=== PATIENT | male | born 1955 | race Caucasian/White ===

== ENCOUNTER 2022-05-21 14:11 | Emergency (ER) | payer MEDICARE, OTHER ==
[2022-05-21 16:05] VITALS: RESP 20; TEMP 98.2
[2022-05-21] MEDS ORDERED: SODIUM CHLORIDE 0.9% 1,000 ML IV STA (16:46)
[2022-05-21 17:11] VITALS: BP 175/95; PULSE 103
[2022-05-21 17:17] LABS: Basophils # (A) 0.1 k/uL (0-0.2); Basophils % (A) 1 %; Eosinophils # (A) 0.1 k/uL (0-0.7); Eosinophils % (A) 1 %; HCT 32.5 % (39.0-53.0); HGB 10.7 gm/dL (13.0-17.5); Hypochromasia Slight; Lymphocytes # (A) 1.3 k/uL (1.0-4.8); Lymphocytes % (A) 12 %; MCH 34.6 pg (25.0-35.0); MCHC 32.9 g/dL (31.0-37.0); MCV 105.1 fL (80.0-100.0); Macrocytosis Moderate; Mean Platelet Volume 8.2; Monocytes # (A) 0.6 k/uL (0-1.0); Monocytes % (A) 6 %; Neutrophils # (A) 8.3 k/uL (1.3-7.7); Neutrophils % (A) 78 %; Platelet Count 299 k/uL (150-450); RBC 3.09 m/uL (4.30-5.90); RDW 15.6 % (11.5-15.5); WBC 10.6 k/uL (3.8-10.6)
[2022-05-21 17:29] LABS: Appearance,Urine Clear (Clear); Bilirubin,Urine 2+ (Negative); Blood,Urine Negative (Negative); Color,Urine Dark Yellow; Glucose,Urine (UA) Negative (Negative); Hyaline Casts,Urine 1 /lpf (0-2); Ketones,Urine 4+ (Negative); Leukocyte Esterase,Urine Negative (Negative); Mucus,Urine Many /hpf; Nitrite,Urine Negative (Negative); Protein,Urine 1+ (Negative); RBC,Urine <1 /hpf (0-5); Specific Gravity,Urine 1.025 (1.001-1.035); Squamous Epithelial Cell,Urine <1 /hpf (0-4); Urobilinogen,Urine >12.0 mg/dL (<2.0); WBC,Urine 4 /hpf (0-5)
[2022-05-21 17:39] LABS: ALT 77 U/L (4-49); African American GFR (CKD) >90 (>60 ml/min/1.73 sqM); Albumin 3.9 g/dL (3.5-5.0); Anion Gap 18 mmol/L; Blood Urea Nitrogen 11 mg/dL (9-20); Calcium 8.7 mg/dL (8.4-10.2); Carbon Dioxide 19 mmol/L (22-30); Chloride 94 mmol/L (98-107); Glucose 90 mg/dL (74-99); Non-African American GFR(CKD) >90 (>60 ml/min/1.73 sqM); Sodium 131 mmol/L (137-145); Total Bilirubin 1.9 mg/dL (0.2-1.3); Total Protein 7.7 g/dL (6.3-8.2)
[2022-05-21 17:51] LABS: AST 200 U/L (17-59); Alkaline Phosphatase 294 U/L (38-126); Potassium 4.7 mmol/L (3.5-5.1)
--- NOTE | 2022-05-21 18:33 | XR ---
EXAMINATION TYPE: XR chest 2V DATE OF EXAM: 05/21/2022 5:43 PM COMPARISON: none TECHNIQUE: XR chest 2V Frontal and lateral views of the chest. CLINICAL INDICATION:Male, 67 years old with history of tachycardia, pitting edema; FINDINGS: Lungs/Pleura: There is no evidence of pleural effusion, focal consolidation, or pneumothorax. Pulmonary vascularity: Unremarkable. Heart/mediastinum: Cardiomediastinal silhouette is unremarkable. Musculoskeletal: No acute osseous pathology. IMPRESSION: No acute cardiopulmonary disease/process.
--- NOTE | 2022-05-21 18:43 | ED ---
ENT HPI - General Chief complaint: Dental/Oral Stated complaint: Thrush and can't eat Time Seen by Provider: 05/21/22 16:19 Source: patient Mode of arrival: ambulatory Limitations: no limitations - History of Present Illness Initial comments: Patient is a 67-year-old male who presents to the emergency department for evaluation of thrush-like symptoms. Patient presents with his family who help provide history. Patient states he has had a white tongue for the past 2 weeks which has made food taste and smell foul. Patient denies any tongue pain. His family has concern that patient has been more fatigued for the past 2 weeks with lower leg swelling. Denies history of high blood pressure, diabetes, coronary artery disease, hyperlipidemia, congestive heart failure, and cancer. Denies corticosteroid use. Patient admits he has not been at the doctor in several years. He states he drinks a pint to a pint and a half daily and smokes a pack and half of cigarettes daily as well. He denies fever, chills, shortness of breath, upper respiratory symptoms, chest pain, abdominal pain, nausea, vomiting, and burning with urination. - Related Data Previous Rx's Medication Instructions Recorded Nystatin 100,000 Unit/ml Susp 5 ml PO QID 7 Days #140 ml 05/21/22 [Mycostatin Oral Susp] Allergies Allergy/AdvReac Type Severity Reaction Status Date / Time Penicillins AdvReac Dyspnea Verified 05/21/22 18:12 Review of Systems ROS Statement: Those systems with pertinent positive or pertinent negative responses have been documented in the HPI. ROS Other: All systems not noted in ROS Statement are negative. Past Medical History Past Medical History: No Reported History Past Surgical History: No Surgical Hx Reported Past Psychological History: No Psychological Hx Reported Smoking Status: Current every day smoker Past Alcohol Use History: Daily, Heavy Past Drug Use History: None Reported General Exam Limitations: no limitations General appearance: alert, in no apparent distress Head exam: Present: atraumatic, normocephalic, normal inspection Eye exam: Present: PERRL, scleral icterus (mild ). Absent: normal appearance, conjunctival injection Pupils: Present: normal accommodation ENT exam: Present: mucous membranes moist, other (white plaques on claudia that scrape off ) Neck exam: Present: normal inspection, full ROM. Absent: tenderness, lymphadenopathy Respiratory exam: Present: normal lung sounds bilaterally. Absent: respiratory distress, wheezes, rales, rhonchi, stridor Cardiovascular Exam: Present: regular rate, tachycardia, normal heart sounds. Absent: systolic murmur, diastolic murmur, rubs, gallop, clicks GI/Abdominal exam: Present: soft, normal bowel sounds. Absent: distended, tenderness, guarding, rebound, rigid Extremities exam: Present: full ROM, pedal edema (2+ bilaterally ). Absent: tenderness Neurological exam: Present: alert, oriented X3, CN II-XII intact Psychiatric exam: Present: normal affect, normal mood Skin exam: Present: warm, dry, intact, normal color. Absent: rash Course Vital Signs 05/21/22 05/21/22 16:02 17:10 Temperature 98.2 F Pulse Rate 112 H 103 H Respiratory 20 20 Rate Blood Pressure 137/81 175/95 O2 Sat by Pulse 98 98 Oximetry Medical Decision Making - Medical Decision Making This is a 67-year-old male with alcohol use disorder and daily tobacco use who presents to the emergency department for evaluation of thrush-like symptoms and fatigue. Thorough history and examination were performed. Patient in no apparent distress. Mild scleral icterus is appreciated. Physical examination of the mouth and throat does reveal thrush. The abdomen is soft and nontender. Patient has 2+ pitting edema bilaterally. Denies history of congestive heart failure. Denies chest pain, shortness of breath, and cough. Full cardiac workup was initiated. EKG shows sinus tachycardia with ventricular rate at 119. Troponin and BNP are within normal limits. Other laboratory studies significant for macrocytic anemia with hemoglobin at 10.7. Liver enzymes and bilirubin are elevated. AST at 200, ALT is 77, alk phos at 294, total bilirubin at 1.9. Patient does not have abdominal pain. Urinalysis reveals for positive ketones and 2+ bilirubin. COVID-19 is not detected. Patient, family, and I discussed importance of alcohol cessation. Patient understands as liver is not functioning normally likely due to alcohol use which can cause permanent liver damage. Patient states he has been cutting back from drinking and his family states they have been helping him and will continue to support him. Patient will be discharged with nystatin rinse. I also provided him with [facility] referral to assist him with alcohol cessation. Return parameters discussed. Patient verbalizes understanding. Patient states he has his first appointment with Dr. Rice on Saturday. He will follow up as scheduled. Dr. Shaffer is my attending. - Lab Data Result diagrams: 05/21/22 17:05 05/21/22 17:05 Lab Results 05/21/22 05/21/22 05/21/22 Range/Units 17:05 17:05 17:05 WBC 10.6 (3.8-10.6) k/uL RBC 3.09 L (4.30-5.90) m/uL Hgb 10.7 L (13.0-17.5) gm/dL Hct 32.5 L (39.0-53.0) % MCV 105.1 H (80.0-100.0) fL MCH 34.6 (25.0-35.0) pg MCHC 32.9 (31.0-37.0) g/dL RDW 15.6 H (11.5-15.5) % Plt Count 299 (150-450) k/uL MPV 8.2 Neutrophils % 78 % Lymphocytes % 12 % Monocytes % 6 % Eosinophils % 1 % Basophils % 1 % Neutrophils # 8.3 H (1.3-7.7) k/uL Lymphocytes # 1.3 (1.0-4.8) k/uL Monocytes # 0.6 (0-1.0) k/uL Eosinophils # 0.1 (0-0.7) k/uL Basophils # 0.1 (0-0.2) k/uL Hypochromasia Slight Macrocytosis Moderate Sodium 131 L (137-145) mmol/L Potassium 4.7 (3.5-5.1) mmol/L Chloride 94 L (98-107) mmol/L Carbon Dioxide 19 L (22-30) mmol/L Anion Gap 18 mmol/L BUN 11 (9-20) mg/dL Creatinine 0.61 L (0.66-1.25) mg/dL Est GFR (CKD-EPI)AfAm >90 (>60 ml/min/1.73 sqM) Est GFR (CKD-EPI)NonAf >90 (>60 ml/min/1.73 sqM) Glucose 90 (74-99) mg/dL Calcium 8.7 (8.4-10.2) mg/dL Total Bilirubin 1.9 H (0.2-1.3) mg/dL AST 200 H (17-59) U/L ALT 77 H (4-49) U/L Alkaline Phosphatase 294 H (38-126) U/L Troponin I (0.000-0.034) ng/mL NT-Pro-B Natriuret Pep 165 pg/mL Total Protein 7.7 (6.3-8.2) g/dL Albumin 3.9 (3.5-5.0) g/dL Urine Color Urine Appearance (Clear) Urine pH (5.0-8.0) Ur Specific [place] (1.001-1.035) Urine Protein (Negative) Urine Glucose (UA) (Negative) Urine Ketones (Negative) Urine Blood (Negative) Urine Nitrite (Negative) Urine Bilirubin (Negative) Urine Urobilinogen (<2.0) mg/dL Ur Leukocyte Esterase (Negative) Urine RBC (0-5) /hpf Urine WBC (0-5) /hpf Ur Squamous Epith Cells (0-4) /hpf Hyaline Casts (0-2) /lpf Urine Mucus (None) /hpf Coronavirus (PCR) (Not Detectd) 05/21/22 05/21/22 05/21/22 Range/Units 17:05 17:12 17:42 WBC (3.8-10.6) k/uL RBC (4.30-5.90) m/uL Hgb (13.0-17.5) gm/dL Hct (39.0-53.0) % MCV (80.0-100.0) fL MCH (25.0-35.0) pg MCHC (31.0-37.0) g/dL RDW (11.5-15.5) % Plt Count (150-450) k/uL MPV Neutrophils % % Lymphocytes % % Monocytes % % Eosinophils % % Basophils % % Neutrophils # (1.3-7.7) k/uL Lymphocytes # (1.0-4.8) k/uL Monocytes # (0-1.0) k/uL Eosinophils # (0-0.7) k/uL Basophils # (0-0.2) k/uL Hypochromasia Macrocytosis Sodium (137-145) mmol/L Potassium (3.5-5.1) mmol/L Chloride (98-107) mmol/L Carbon Dioxide (22-30) mmol/L Anion Gap mmol/L BUN (9-20) mg/dL Creatinine (0.66-1.25) mg/dL Est GFR (CKD-EPI)AfAm (>60 ml/min/1.73 sqM) Est GFR (CKD-EPI)NonAf (>60 ml/min/1.73 sqM) Glucose (74-99) mg/dL Calcium (8.4-10.2) mg/dL Total Bilirubin (0.2-1.3) mg/dL AST (17-59) U/L ALT (4-49) U/L Alkaline Phosphatase (38-126) U/L Troponin I <0.012 (0.000-0.034) ng/mL NT-Pro-B Natriuret Pep pg/mL Total Protein (6.3-8.2) g/dL Albumin (3.5-5.0) g/dL Urine Color Dark Yellow Urine Appearance Clear (Clear) Urine pH 6.0 (5.0-8.0) Ur Specific [place] 1.025 (1.001-1.035) Urine Protein 1+ H (Negative) Urine Glucose (UA) Negative (Negative) Urine Ketones 4+ H (Negative) Urine Blood Negative (Negative) Urine Nitrite Negative (Negative) Urine Bilirubin 2+ H (Negative) Urine Urobilinogen >12.0 (<2.0) mg/dL Ur Leukocyte Esterase Negative (Negative) Urine RBC <1 (0-5) /hpf Urine WBC 4 (0-5) /hpf Ur Squamous Epith Cells <1 (0-4) /hpf Hyaline Casts 1 (0-2) /lpf Urine Mucus Many H (None) /hpf Coronavirus (PCR) Not Detected (Not Detectd) - EKG Data Rate: normal EKG Comments: EKG taken at 16:52 Sinus tachycardia, nonspecific ST and T-wave abnormality Ventricular rate 119 AL interval 155 QRS duration 88 QTC 397 Disposition Clinical Impression: Thrush, Alcohol use disorder, Elevated liver enzymes, Anemia Disposition: HOME SELF-CARE Condition: Fair Instructions (If sedation given, give patient instructions): Oral Candidiasis (ED), Alcohol Use Disorder (ED) Additional Instructions: Please take medication as directed. It is very important to establish care with a primary care provider. It is also very important to stop drinking alcohol as it can cause permanent irreversible liver damage. I did provide you with a resource who can help you with this process. Return to the emergency department if you experience new, concerning, or worsening symptoms. Prescriptions: Nystatin 100,000 Unit/ml Susp [Mycostatin Oral Susp] 5 ml PO QID 7 Days #140 ml Is patient prescribed a controlled substance at d/c from ED?: No Referrals: None,Stated [Primary Care Provider] - 1-2 days [facility] [Outside] - 1-2 days Time of Disposition: 18:43
== END 2022-05-21 19:24 | disposition home or self-care (01) ==
LOC: EC 14:11
DX: B37.9 Candidiasis, unspecified (principal); F10.20 Alcohol dependence, uncomplicated; D53.9 Nutritional anemia, unspecified; R74.8 Abnormal levels of other serum enzymes; Z20.822 Contact with and (suspected) exposure to COVID-19; F17.210 Nicotine dependence, cigarettes, uncomplicated; Z88.0 Allergy status to penicillin
CPT/HCPCS: 36415; 71046; 80053; 81001; 83880; 84484; 85025; 87635; 93005; 96360; 99283

== ENCOUNTER 2022-11-11 11:49 | Emergency (ER) | payer MEDICARE, OTHER ==
[2022-11-11] MEDS ORDERED: methylPREDNISolone SOD SUCCI 125 MG/2 ML VIAL IV STA (12:16)
[2022-11-11] MEDS ORDERED: IPRATROPIUM-ALBUTEROL 3 ML NEB INHALATION STA (12:16)
[2022-11-11] MEDS ORDERED: ALBUTEROL HFA INHALER INHALATION STA (12:16)
--- NOTE | 2022-11-11 12:45 | ED ---
General Adult HPI - General Chief complaint: Shortness of Breath Stated complaint: SOB Time Seen by Provider: 11/11/22 12:08 Source: patient, EMS, RN notes reviewed, old records reviewed Mode of arrival: EMS Limitations: no limitations - History of Present Illness Initial comments: Patient is a 67-year-old male with past medical history remarkable for chronic alcohol abuse, COPD, hypertension, CHF, ascites who presents emergency Department with worsening shortness of breath, weakness over the last few days. Has been complaining of worsening symptoms for multiple days but seems also be progressing over the last month. Has been following Dr. Rice but has not seen him recently. Has not seen a liver specialist. Is continuing to drink alcohol. Denies any history of alcohol withdrawals. Denies any productive cough. Endorses abdominal distention/ascites. Denies any chest pain. Does endorse mild shortness of breath is worse on exertion. States he has been prescribed a water pill but has not been taking it. Noticing worsening jaundice as well as scleral icterus. Patient's daughter presents at bedside with the patient corroborates the story. He presents for further evaluation at this time. - Related Data Previous Rx's Medication Instructions Recorded Nystatin 100,000 Unit/ml Susp 5 ml PO QID 7 Days #140 ml 05/21/22 [Mycostatin Oral Susp] Allergies Allergy/AdvReac Type Severity Reaction Status Date / Time Penicillins AdvReac Dyspnea Verified 11/11/22 11:57 Review of Systems ROS Statement: Those systems with pertinent positive or pertinent negative responses have been documented in the HPI. Review of Systems: CONST: Denies fever EYES: Denies blurry vision ENT: Denies nasal congestion C/V: Denies Chest pain RESP: Denies shortness of breath GI: Endorses abdominal distention : Denies dysuria SKIN: Endorses jaundice MSK: Denies joint pain. NEURO: Denies headache ROS Other: All systems not noted in ROS Statement are negative. Past Medical History Past Medical History: Hypertension Additional Past Medical History / Comment(s): COPD, ascites, CHF, alcoholic, History of Any Multi-Drug Resistant Organisms: None Reported Past Surgical History: No Surgical Hx Reported Past Psychological History: No Psychological Hx Reported Smoking Status: Current every day smoker Past Alcohol Use History: Daily, Heavy Past Drug Use History: None Reported General Exam - General Exam Comments Initial Comments: General: Appears in mild to moderate distress secondary to respiratory function. HEAD: Normal with no signs of head trauma. EYES: PERRLA, EOMI, conjunctiva normal, no discharge. Scleral icterus. ENT: Hearing grossly intact, normal oropharynx. Dry mucous membranes. RESPIRATORY: Wheezy/rhonchorous breath sounds bilaterally. No significant increased respiratory distress. Saturating 92% on 4 L nasal cannula. C/V: Mildly tachycardic. S1 and S2 auscultated. Peripheral pulses 2+ intact throughout. Regular rate and rhythm. ABD: Abdominal distention with overlying bruising. Fluid wave appreciated. Appears to be ascites. Patient states he does have a history of this, however this is worse. EXT: Normal range of motion, no obvious deformity SKIN: No rashes or lesions observed on exposed skin. NEURO: Alert and oriented x 4. Cranial nerves II-XII intact. No focal sensory or strength deficits. Limitations: no limitations Course Vital Signs 11/11/22 11/11/22 11/11/22 11:52 11:57 12:04 Temperature 98.6 F Pulse Rate 107 H 108 H Respiratory 16 16 18 Rate Blood Pressure 91/58 93/55 O2 Sat by Pulse 92 L 94 L Oximetry 11/11/22 11/11/22 11/11/22 13:00 13:51 14:07 Temperature 97.0 F L Pulse Rate 105 H 106 H 104 H Respiratory 18 18 22 Rate Blood Pressure 96/57 107/50 110/62 O2 Sat by Pulse 94 L 95 Oximetry 11/11/22 11/11/22 11/11/22 14:17 14:21 14:31 Temperature 97.2 F L Pulse Rate 105 H 101 H 100 Respiratory 98 H 18 18 Rate Blood Pressure 111/42 O2 Sat by Pulse Oximetry 11/11/22 11/11/22 14:37 15:06 Temperature 97.9 F 97.4 F L Pulse Rate 102 H 102 H Respiratory 20 18 Rate Blood Pressure 121/70 118/71 O2 Sat by Pulse 94 L 98 Oximetry Medical Decision Making - Medical Decision Making Was pt. sent in by a medical professional or institution? @ -No Did you speak to anyone other than the patient for history? @ -Yes. Family, who was able to detail patient's recent diagnosis of liver disease and follow up with Dr. Rice. Patient is compliant with diuretics at home per family. No blood in stool and no evidence of hematemesis. Did you review nursing and triage notes? @ -Yes. I agree. Were old charts reviewed? @ -Yes. Previous visits and laboratory studies. Differential Diagnosis? @ -Differential Abdominal Pain Men: Appendicitis, cholecystitis, diverticulosis, ischemic bowel, pancreatitis, hepatitis, UTI, gastroenteritis, AAA, incarcerated hernia, bowel obstruction, constipation, inflammatory bowel, hepatitis, peptic ulcer disease, splenic infarction, perforated viscus, testicular torsion, this is not meant to be an all-inclusive list EKG interpreted by me (3pts min.)? @ -Yes. See note. X-rays interpreted by me (1pt min.)? @ -Yes. Chest x-ray revealed a poor study with possible findings of pneumonia although it is unconvincing. CT interpreted by me (1pt min.)? @ -none U/S interpreted by me (1pt. min.)? @ -Patient's ultrasound as interpreted by myself revealed small gallstones and biliary sludge with trace ascites as well as an enlarged liver with findings suggestive of cirrhosis. No evidence of cholecystitis. What testing was considered but not performed? (CT, X-rays, U/S, labs)? Why? @CT abdomen and pelvis with contrast. Was not done as to not delay transfer as well as due to the patient's poor kidney function at this time. What meds were considered but not given? Why? @ -30 mL per KG IV fluid bolus, however patient does have a history of volume for his load statement does appear acutely volume overloaded at this time. We will slowly administered fluids at this time. Did you discuss the management of the patient with other professionals? @ -Yes. I spoke with the [facility]'s ER physician Dr. Meredith who accepted the patient. We discussed the management of the patient he was in agreement with the plan. Request that we send him with his imaging of the disc. Patient will be transferred ER to ER. Did you reconcile home meds? @ -Yes Was smoking cessation discussed for >3mins.? @ -none Was critical care preformed (if so, how long)? @ -Yes. 35 minutes. Please see note. Were there social determinants of health that impacted care today? How? (Homelessness, low income, unemployed, alcoholism, drug addiction, transportation, low edu. Level, literacy, decrease access to med. care, fci, rehab)? @ -Yes. Alcoholism. Directly. She was the patient's alcohol liver disease as well as resulting hepatorenal syndrome, current sepsis, hyperbilirubinemia causing jaundice and scleral icterus. Was there de-escalation of care discussed even if they declined? (Discuss DNR or withdrawal of care, Hospice)? @ -No What co-morbidities impacted this encounter? (DM, HTN, Smoking, COPD, CAD, Cancer, CVA, Hep., AIDS, mental health diagnosis, sleep apnea, morbid obesity)? @ -COPD, CHF, alcohol liver disease Was patient admitted / discharged? @ -Based on the patient's presentation and physical exam, I'm concerned for possible worsening liver failure as well as of volume overload state for the patient. We will obtain broad workup. This includes a CT abdominal and pelvis. Also obtain ultrasounds of the abdomen including liver and gallbladder. Cardiac pulmonary workup will be obtained. Patient has somewhat softer blood pressures and we will continue to monitor at this time. Fluids are initially held, as I do believe that the subsequent pressures are likely related to be ascites as well as his overall liver State. We will continue caring for his volume overload state at this time. He was in agreement this plan. Patient was wheezy and we will treat with IV steroids as well as breathing treatments at this time for COPD. Vital signs otherwise within acceptable limits at this time but we will monitor closely. Patient's laboratory studies are remarkable for what appears to be dehydration as well as acute liver failure with multiorgan involvement. Appears to have a. No renal syndrome as he does have an AK I with elevated BUN 16 and creatinine of 3.49. This is acute. Patient has an anion gap metabolic acidosis which is likely multifactorial including lactic acidosis of 6.6 which is likely from his alcohol intoxication that is acute as well as chronic liver disease as well as possible infection. Patient's LFTs appeared to be within acceptable limits for the patient, as we have recent labs from 6 months ago and AST, ALT, alk phos are all near baseline. Patient's total bilirubin though is acutely elevated to 11.4 which is new. Patient is acutely hyponatremic to 120 and hypochloremic to 74 appears volume overloaded with ascites as well as his dyspnea. Patient is anemic to 6.7 which is acute. Likely secondary to his chronic disease process. Denies any source of bleeding, dark or melanotic stools, hematochezia, hematemesis. Chest x-ray as interpreted by myself revealed a possible pneumonia with no enrique CHF exacerbation.Patient's BNP is within acceptable limits. Troponin is indeterminate at 0.023. At 1315, the patient met criteria for sepsis. He was started on broad-spectrum antibiotics, including vancomycin, cefepime, Flagyl. We will not provide him with a 30 mL per EKG fluid bolus as I am concerned for his overall fluid overload state. We will continue to monitor and provided gentle fluid boluses as needed. We will start with 500 mL. Patient with his kidney function will not tolerate a CT and pelvis with contrast. We will obtain an ultrasound of the abdomen. I discussed the findings with the patient as well as family. I do believe that this is progression of his acute alcoholic liver disease now involving the kidneys causing hepatorenal syndrome and acute dehydration. There is also concern for sepsis and dehydration. They expressed understanding. We do not have GI services here. We will attempt to transfer the patient at this time, with top destination of [facility] due to the routine manner. They have no prior follow up with these physicians. We will attempt to transfer. They were in agreement this plan. Patient's vital signs remained stable at this time. [facility]'s considering the transfer, however patient would be placed on a wait list that still has patient's on it from 3-4 days ago. Therefore we will be proactive and also speak to [facility] at this time. Dewayne Metz is close to transfer his except for trauma and strokes.[facility] did accept the patient is an ER to ER transfer patient patient will be transferred for higher level of care as we do not have GI services here. P atient will be transferred to [facility]. Accepting physician is Dr. Meredith. Patient will be transferred in serious condition. I discussed this with the patient and he was in agreement this plan. Patient will have antibiotics, 1 unit of packed red blood cells, as well as IV fluids hanging for transfer. Vital signs remained stable throughout his time here in the department. I updated family as well as the patient. They were in agreement with the plan for transfer. Undiagnosed new problem with uncertain prognosis? @ -Yes. Acute sepsis, acute hepatorenal syndrome, acute dehydration. Acute lactic acidosis. Acute alcohol intoxication. Acute macrocytic anemia Drug Therapy requiring intensive monitoring for toxicity (Heparin, Nitro, Insulin, Cardizem)? @ -none Were any procedures done? @ -none Diagnosis/symptom? @ -Acute alcohol intoxication, acute macrocytic anemia, acute dehydration, acute hyponatremia, hypochloremia, acute kidney injury secondary to suspected hepatorenal syndrome, ascites, acute lactic acidosis likely secondary to liver disease, dehydration, alcohol intoxication. Acute hyperbilirubinemia. Acute, or Chronic, or Acute on Chronic? @ -Acute, as well as acute on chronic Uncomplicated (without systemic symptoms) or Complicated (systemic symptoms)? @ -Complicated Side effects of treatment? @ -IV fluids can cause worsening volume overload status in the setting of CHF. We'll monitor closely. Exacerbation, Progression, or Severe Exacerbation] @ -Exacerbation and progression. Poses a threat to life or bodily function? @ -Yes. Acute sepsis, dehydration, hyponatremia, alcohol liver disease that is progressively worsening and can result in or severe morbidity. - Lab Data Result diagrams: 11/11/22 12:28 11/11/22 12:28 Lab Results 11/11/22 11/11/22 11/11/22 Range/Units 12:28 12:28 12:28 WBC 10.8 H (3.8-10.6) k/uL RBC 1.80 L (4.30-5.90) m/uL Hgb 6.7 L* (13.0-17.5) gm/dL Hct 20.6 L (39.0-53.0) % MCV 114.2 H (80.0-100.0) fL MCH 37.4 H (25.0-35.0) pg MCHC 32.8 (31.0-37.0) g/dL RDW 21.8 H (11.5-15.5) % Plt Count 212 (150-450) k/uL MPV 10.6 Neutrophils % 83 % Lymphocytes % 8 % Monocytes % 6 % Eosinophils % 0 % Basophils % 0 % Neutrophils # 8.9 H (1.3-7.7) k/uL Lymphocytes # 0.9 L (1.0-4.8) k/uL Monocytes # 0.6 (0-1.0) k/uL Eosinophils # 0.0 (0-0.7) k/uL Basophils # 0.0 (0-0.2) k/uL Manual Slide Review Performed Polychromasia Present Hypochromasia Moderate Anisocytosis Moderate Macrocytosis Marked A [place] Bodies Present PT 12.5 H (9.0-12.0) sec INR 1.2 H (<1.2) APTT 27.0 (22.0-30.0) sec Sodium 120 L (137-145) mmol/L Potassium 3.9 (3.5-5.1) mmol/L Chloride 74 L* (98-107) mmol/L Carbon Dioxide 27 (22-30) mmol/L Anion Gap 19 mmol/L BUN 68 H (9-20) mg/dL Creatinine 3.49 H (0.66-1.25) mg/dL Est GFR (CKD-EPI)AfAm 20 (>60 ml/min/1.73 sqM) Est GFR (CKD-EPI)NonAf 17 (>60 ml/min/1.73 sqM) Glucose 83 (74-99) mg/dL Lactic Ac Sepsis Rflx Plasma Lactic Acid [place] (0.7-2.0) mmol/L Calcium 7.3 L (8.4-10.2) mg/dL Total Bilirubin 11.4 H (0.2-1.3) mg/dL Conjugated Bilirubin (0.0-0.3) mg/dL Unconjugated Bilirubin (0.0-1.1) mg/dL Delta Bilirubin (0.0-0.2) mg/dL AST 189 H (17-59) U/L ALT 53 H (4-49) U/L Alkaline Phosphatase 349 H (38-126) U/L Ammonia (<30) umol/L Troponin I (0.000-0.034) ng/mL NT-Pro-B Natriuret Pep pg/mL Total Protein 7.3 (6.3-8.2) g/dL Albumin 3.1 L (3.5-5.0) g/dL Amylase 47 (30-110) U/L Lipase 171 (23-300) U/L Serum Alcohol 171 mg/dL Influenza Type A (PCR) (Not Detectd) Influenza Type B (PCR) (Not Detectd) RSV (PCR) (Not Detectd) SARS-CoV-2 (PCR) (Not Detectd) Blood Type Blood Type Confirm Blood Type Recheck Bld Type Recheck Status Antibody Screen Crossmatch Spec Expiration Date 11/11/22 11/11/22 11/11/22 Range/Units 12:28 12:28 12:28 WBC (3.8-10.6) k/uL RBC (4.30-5.90) m/uL Hgb (13.0-17.5) gm/dL Hct (39.0-53.0) % MCV (80.0-100.0) fL MCH (25.0-35.0) pg MCHC (31.0-37.0) g/dL RDW (11.5-15.5) % Plt Count (150-450) k/uL MPV Neutrophils % % Lymphocytes % % Monocytes % % Eosinophils % % Basophils % % Neutrophils # (1.3-7.7) k/uL Lymphocytes # (1.0-4.8) k/uL Monocytes # (0-1.0) k/uL Eosinophils # (0-0.7) k/uL Basophils # (0-0.2) k/uL Manual Slide Review Polychromasia Hypochromasia Anisocytosis Macrocytosis [place] Bodies PT (9.0-12.0) sec INR (<1.2) APTT (22.0-30.0) sec Sodium (137-145) mmol/L Potassium (3.5-5.1) mmol/L Chloride (98-107) mmol/L Carbon Dioxide (22-30) mmol/L Anion Gap mmol/L BUN (9-20) mg/dL Creatinine (0.66-1.25) mg/dL Est GFR (CKD-EPI)AfAm (>60 ml/min/1.73 sqM) Est GFR (CKD-EPI)NonAf (>60 ml/min/1.73 sqM) Glucose (74-99) mg/dL Lactic Ac Sepsis Rflx Plasma Lactic Acid [place] 6.6 H* (0.7-2.0) mmol/L Calcium (8.4-10.2) mg/dL Total Bilirubin (0.2-1.3) mg/dL Conjugated Bilirubin (0.0-0.3) mg/dL Unconjugated Bilirubin (0.0-1.1) mg/dL Delta Bilirubin (0.0-0.2) mg/dL AST (17-59) U/L ALT (4-49) U/L Alkaline Phosphatase (38-126) U/L Ammonia 37 H (<30) umol/L Troponin I 0.023 (0.000-0.034) ng/mL NT-Pro-B Natriuret Pep 423 pg/mL Total Protein (6.3-8.2) g/dL Albumin (3.5-5.0) g/dL Amylase (30-110) U/L Lipase (23-300) U/L Serum Alcohol mg/dL Influenza Type A (PCR) (Not Detectd) Influenza Type B (PCR) (Not Detectd) RSV (PCR) (Not Detectd) SARS-CoV-2 (PCR) (Not Detectd) Blood Type Blood Type Confirm Blood Type Recheck Bld Type Recheck Status Antibody Screen Crossmatch Spec Expiration Date 11/11/22 11/11/22 11/11/22 Range/Units 12:28 12:37 12:40 WBC (3.8-10.6) k/uL RBC (4.30-5.90) m/uL Hgb (13.0-17.5) gm/dL Hct (39.0-53.0) % MCV (80.0-100.0) fL MCH (25.0-35.0) pg MCHC (31.0-37.0) g/dL RDW (11.5-15.5) % Plt Count (150-450) k/uL MPV Neutrophils % % Lymphocytes % % Monocytes % % Eosinophils % % Basophils % % Neutrophils # (1.3-7.7) k/uL Lymphocytes # (1.0-4.8) k/uL Monocytes # (0-1.0) k/uL Eosinophils # (0-0.7) k/uL Basophils # (0-0.2) k/uL Manual Slide Review Polychromasia Hypochromasia Anisocytosis Macrocytosis [place] Bodies PT (9.0-12.0) sec INR (<1.2) APTT (22.0-30.0) sec Sodium (137-145) mmol/L Potassium (3.5-5.1) mmol/L Chloride (98-107) mmol/L Carbon Dioxide (22-30) mmol/L Anion Gap mmol/L BUN (9-20) mg/dL Creatinine (0.66-1.25) mg/dL Est GFR (CKD-EPI)AfAm (>60 ml/min/1.73 sqM) Est GFR (CKD-EPI)NonAf (>60 ml/min/1.73 sqM) Glucose (74-99) mg/dL Lactic Ac Sepsis Rflx Plasma Lactic Acid [place] (0.7-2.0) mmol/L Calcium (8.4-10.2) mg/dL Total Bilirubin 11.3 H (0.2-1.3) mg/dL Conjugated Bilirubin 6.4 H (0.0-0.3) mg/dL Unconjugated Bilirubin 1.2 H (0.0-1.1) mg/dL Delta Bilirubin 3.7 H (0.0-0.2) mg/dL AST (17-59) U/L ALT (4-49) U/L Alkaline Phosphatase (38-126) U/L Ammonia (<30) umol/L Troponin I (0.000-0.034) ng/mL NT-Pro-B Natriuret Pep pg/mL Total Protein (6.3-8.2) g/dL Albumin (3.5-5.0) g/dL Amylase (30-110) U/L Lipase (23-300) U/L Serum Alcohol mg/dL Influenza Type A (PCR) Not Detected (Not Detectd) Influenza Type B (PCR) Not Detected (Not Detectd) RSV (PCR) Not Detected (Not Detectd) SARS-CoV-2 (PCR) Not Detected (Not Detectd) Blood Type Blood Type Confirm O Positive Blood Type Recheck Bld Type Recheck Status Antibody Screen Crossmatch Spec Expiration Date 11/11/22 11/11/22 Range/Units 12:45 13:05 WBC (3.8-10.6) k/uL RBC (4.30-5.90) m/uL Hgb (13.0-17.5) gm/dL Hct (39.0-53.0) % MCV (80.0-100.0) fL MCH (25.0-35.0) pg MCHC (31.0-37.0) g/dL RDW (11.5-15.5) % Plt Count (150-450) k/uL MPV Neutrophils % % Lymphocytes % % Monocytes % % Eosinophils % % Basophils % % Neutrophils # (1.3-7.7) k/uL Lymphocytes # (1.0-4.8) k/uL Monocytes # (0-1.0) k/uL Eosinophils # (0-0.7) k/uL Basophils # (0-0.2) k/uL Manual Slide Review Polychromasia Hypochromasia Anisocytosis Macrocytosis [place] Bodies PT (9.0-12.0) sec INR (<1.2) APTT (22.0-30.0) sec Sodium (137-145) mmol/L Potassium (3.5-5.1) mmol/L Chloride (98-107) mmol/L Carbon Dioxide (22-30) mmol/L Anion Gap mmol/L BUN (9-20) mg/dL Creatinine (0.66-1.25) mg/dL Est GFR (CKD-EPI)AfAm (>60 ml/min/1.73 sqM) Est GFR (CKD-EPI)NonAf (>60 ml/min/1.73 sqM) Glucose (74-99) mg/dL Lactic Ac Sepsis Rflx Y Plasma Lactic Acid [place] (0.7-2.0) mmol/L Calcium (8.4-10.2) mg/dL Total Bilirubin (0.2-1.3) mg/dL Conjugated Bilirubin (0.0-0.3) mg/dL Unconjugated Bilirubin (0.0-1.1) mg/dL Delta Bilirubin (0.0-0.2) mg/dL AST (17-59) U/L ALT (4-49) U/L Alkaline Phosphatase (38-126) U/L Ammonia (<30) umol/L Troponin I (0.000-0.034) ng/mL NT-Pro-B Natriuret Pep pg/mL Total Protein (6.3-8.2) g/dL Albumin (3.5-5.0) g/dL Amylase (30-110) U/L Lipase (23-300) U/L Serum Alcohol mg/dL Influenza Type A (PCR) (Not Detectd) Influenza Type B (PCR) (Not Detectd) RSV (PCR) (Not Detectd) SARS-CoV-2 (PCR) (Not Detectd) Blood Type O Positive Blood Type Confirm Blood Type Recheck No Previous Record Bld Type Recheck Status CABO Indicated Antibody Screen NEGATIVE Crossmatch See Detail Spec Expiration Date 11/14/20222344 - EKG Data -: EKG Interpreted by Me EKG Comments: 12-lead Electrocardiogram Interpretation Note EKG was reviewed and interpreted by myself. 12-lead ECG performed at 1155 is interpreted by me as revealing sinus tachycardia at a rate of 107 beats per minute. Noel is normal. SD interval is 154 ms, QRS duration 71 ms, QTc is 498 ms.. There were no ST or T wave abnormalities to suggest myocardial ischemia or injury. R wave progression across the precordium was satisfactory. By my interpretation this EKG is non-diagnostic for acute ischemia. When compared with EKG from May 2022, no significant change. Critical Care Time Critical Care Time: Yes Total Critical Care Time: 35 Critical Care Time: Upon my evaluation, this patient had a high probability of imminent or life- threatening deterioration due to worsening liver cirrhosis, hepatorenal syndrome, sepsis, dehydration, anemia, acute alcohol intoxication, COPD exacerbation, which required my direct attention, intervention, and personal management. I have personally provided 35 minutes of critical care time exclusive of time spent on separately billable procedures. Time includes review of laboratory data, radiology results, discussion with consultants, and monitoring for potential decompensation. Interventions were performed as documented in my note. Disposition Clinical Impression: Sepsis, Hepatorenal syndrome, Ascites, Hyperbilirubinemia, Dehydration, H yponatremia, Hypochloremia, Alcoholic liver disease, COPD exacerbation, History of congestive heart failure, DIVINA (acute kidney injury), Macrocytic anemia Disposition: OTHER INSTITUTION NOT DEFINED Condition: Serious Referrals: Donovan Rice MD [Primary Care Provider] - 1-2 days Time of Disposition: 14:00 - Out of Hospital Transfer - Req. Specs Out of Hospital Transfer - Requested Specifics: Other Emergency Center (Transfer to [facility] for escalation of care. No GI services here.)
--- NOTE | 2022-11-11 12:54 | XR ---
EXAMINATION TYPE: XR chest 2V DATE OF EXAM: 11/11/2022 12:31 PM COMPARISON: Chest radiographs from 05/21/2022. TECHNIQUE: XR chest 2V Frontal and lateral views of the chest. CLINICAL INDICATION:Male, 67 years old with history of abdominal pain; FINDINGS: Lungs/Pleura: Pleural lateral view demonstrates increased opacification over the spine. There is no e vidence of pleural effusion, or pneumothorax. Pulmonary vascularity: Unremarkable. Heart/mediastinum: Cardiomediastinal silhouette is unremarkable. Musculoskeletal: No acute osseous pathology. IMPRESSION: Low lung volumes with a generalized hazy appearance likely representing atelectasis. There is increas ed opacity over the spine and lateral. Correlate for pneumonia.
[2022-11-11 12:55] LABS: Albumin 3.1 g/dL (3.5-5.0); Calcium 7.3 mg/dL (8.4-10.2); Potassium 3.9 mmol/L (3.5-5.1); Total Bilirubin 11.4 mg/dL (0.2-1.3); Total Protein 7.3 g/dL (6.3-8.2)
[2022-11-11 13:01] LABS: Anisocytosis Moderate; Basophils % (A) 0 %; Eosinophils % (A) 0 %; HCT 20.6 % (39.0-53.0); Hypochromasia Moderate; INR 1.2 (<1.2); Lymphocytes # (A) 0.9 k/uL (1.0-4.8); Lymphocytes % (A) 8 %; MCH 37.4 pg (25.0-35.0); MCHC 32.8 g/dL (31.0-37.0); MCV 114.2 fL (80.0-100.0); Macrocytosis Marked; Mean Platelet Volume 10.6; Monocytes # (A) 0.6 k/uL (0-1.0); Monocytes % (A) 6 %; Neutrophils # (A) 8.9 k/uL (1.3-7.7); Neutrophils % (A) 83 %; Platelet Count 212 k/uL (150-450); Prothrombin Time 12.5 sec (9.0-12.0); RDW 21.8 % (11.5-15.5); WBC 10.8 k/uL (3.8-10.6)
[2022-11-11 13:02] LABS: HGB 6.7 gm/dL (13.0-17.5)
[2022-11-11 13:05] LABS: Lactic Acid, Venous 6.6 mmol/L (0.7-2.0)
[2022-11-11] MEDS ORDERED: SODIUM CHLORIDE 0.9% 500 ML 500 ML IV STA ×2 (13:10→13:32)
[2022-11-11] MEDS ORDERED: VANCOMYCIN IV PER PHARMACY 1 EACH MISC MISCELLANE PRN (13:10)
[2022-11-11] MEDS ORDERED: LORazepam 1 MG TAB PO PRN ×3 (13:13)
[2022-11-11] MEDS ORDERED: THIAMINE 100 MG/ML 2 ML VIAL IM STA (13:13)
[2022-11-11] MEDS ORDERED: LORazepam 0.5 MG TAB PO PRN (13:13)
[2022-11-11] MEDS ORDERED: VANCOMYCIN 1,500 MG in SODIUM CHLORIDE 0.9% 500 ML 500 ML IVPB STA (13:20)
[2022-11-11 13:59] LABS: Howell-Jolly Bodies Present; Polychromasia Present
--- NOTE | 2022-11-11 14:11 | US ---
EXAMINATION TYPE: US abdomen limited DATE OF EXAM: 11/11/2022 COMPARISON: NONE CLINICAL HISTORY: ascites, eval for GB pathology/liver cirrhosis. TECHNIQUE: Multiple sonographic images of the right upper quadrant are obtained. 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 Increased attenuation, decreased visualization of vessels suggestive of fatty infil trate mild nodular contour. Gallbladder: Soft debris, possible sludge Evidence for sonographic Verdin's sign: No CBD: wnl Right Kidney: wnl Free fluid present around liver IMPRESSION: 1. Heterogenous echotexture to liver which is is difficult to penetrate. Subtle nodularity to liver is suggested but suboptimally visualized with low frequency probe. Findings of hepatocellular disease could represent cirrhosis possibly secondary to steatosis 2. Biliary Sludge/small gallstones. 3. Trace ascites.
[2022-11-11 14:19] LABS: Bilirubin, Conjugated 6.4 mg/dL (0.0-0.3); Bilirubin, Delta 3.7 mg/dL (0.0-0.2); Bilirubin,Unconjugated 1.2 mg/dL (0.0-1.1); Total Bilirubin 11.3 mg/dL (0.2-1.3)
[2022-11-11 14:43] VITALS: PULSE 102
[2022-11-11 15:09] VITALS: BP 118/71; RESP 18; TEMP 97.4
[2022-11-11] MEDS ORDERED: CEFEPIME 2 GM in SODIUM CHLORIDE 0.9% 100 ML IVPB SCH (16:00)
[2022-11-11] MEDS ORDERED: metroNIDAZOLE-NS PMX 500 MG in SALINE 1 100ML.BAG IVPB SCH (16:00)
[2022-11-12] MEDS ORDERED: VANCOMYCIN 1,500 MG in SODIUM CHLORIDE 0.9% 500 ML 500 ML IVPB ONE (09:00)
[2022-11-12] MEDS ORDERED: THIAMINE 100 MG TAB PO SCH (09:00)
== END 2022-11-11 15:10 | disposition other institution (70) ==
LOC: EC 11:49
DX: A41.9 Sepsis, unspecified organism (principal); D53.9 Nutritional anemia, unspecified; E86.0 Dehydration; E87.1 Hypo-osmolality and hyponatremia; E87.8 Other disorders of electrolyte and fluid balance, not elsewhere classified; I11.0 Hypertensive heart disease with heart failure; I50.9 Heart failure, unspecified; J44.1 Chronic obstructive pulmonary disease with (acute) exacerbation; K70.9 Alcoholic liver disease, unspecified; K76.7 Hepatorenal syndrome; K80.20 Calculus of gallbladder without cholecystitis without obstruction; R18.8 Other ascites; F17.200 Nicotine dependence, unspecified, uncomplicated; Z88.0 Allergy status to penicillin; Z20.822 Contact with and (suspected) exposure to COVID-19
CPT/HCPCS: 94640; 93005; 86900; 86901; 83880; 80053; 82140; 82150; 82248; 83605; 83690; 84484; 85025; 85610; 85730; 86850; 86920; 87040; 87636; 71046; 76705; 99291; 96365; 96375; 96372; P9016; G0480; J3370; J2930; J3411; 36415; 80320

== ENCOUNTER 2023-10-14 19:59 | Emergency (ER) | payer MEDICARE, OTHER ==
[2023-10-14 20:05] VITALS: BP 155/98; PULSE 92; RESP 16; TEMP 98.7
--- NOTE | 2023-10-14 20:24 | ED ---
General Adult HPI - General Chief complaint: Recheck/Abnormal Lab/Rx Stated complaint: obstruction in throat Time Seen by Provider: 10/14/23 20:09 Source: patient, RN notes reviewed Mode of arrival: ambulatory Limitations: no limitations - History of Present Illness Initial comments: Patient is a pleasant 68-year-old male presenting to the emergency department with concern for chicken stuck in his throat. Onset was just prior to arrival. Patient was close the hospital and therefore came here. Patient did not attempt to eat or drink anything since that time. No dyspnea. Patient did drink water in the emergency department and now feels it is past. Patient is currently symptom-free. - Related Data Home Medications Medication Instructions Recorded Confirmed Fluticasone/Vilanterol [Breo 1 puff INHALATION RT-DAILY 12/14/22 01/04/23 Ellipta 200-25 Mcg Inhaler] Furosemide [Lasix] 20 mg PO BID 12/14/22 01/04/23 Lactulose [Constulose] 10 gm PO DAILY PRN 12/14/22 01/04/23 Omeprazole [PriLOSEC] 20 mg PO AC-BID 12/14/22 01/04/23 Spironolactone [Aldactone] 25 mg PO BID 12/14/22 01/04/23 dilTIAZem HCL [dilTIAZem HCL 24Hr 240 mg PO DAILY 12/24/22 01/04/23 ER] Allergies Allergy/AdvReac Type Severity Reaction Status Date / Time Penicillins AdvReac Dyspnea Verified 01/04/23 12:37 Review of Systems ROS Statement: Those systems with pertinent positive or pertinent negative responses have been documented in the HPI. ROS Other: All systems not noted in ROS Statement are negative. Constitutional: Denies: fever Eyes: Denies: eye pain ENT: Denies: ear pain Respiratory: Denies: cough, dyspnea Cardiovascular: Denies: chest pain Gastrointestinal: Denies: abdominal pain Past Medical History Past Medical History: Atrial Fibrillation, Hypertension, Liver Disease Additional Past Medical History / Comment(s): COPD, ascites, CHF, liver cirrhosis for ETOH quit drinkgin 11-11-22 History of Any Multi-Drug Resistant Organisms: None Reported Past Surgical History: No Surgical Hx Reported Additional Past Surgical History / Comment(s): paracentesis, EGD Past Anesthesia/Blood Transfusion Reactions: No Reported Reaction Past Psychological History: No Psychological Hx Reported Smoking Status: Current every day smoker Past Alcohol Use History: None Reported Past Drug Use History: None Reported - Past Family History Daughter(s) Family Medical History: Hypertension, Seizure Disorder General Exam Limitations: no limitations General appearance: alert, in no apparent distress Head exam: Present: normocephalic Eye exam: Present: normal appearance ENT exam: Present: normal oropharynx Neck exam: Present: normal inspection Respiratory exam: Present: normal lung sounds bilaterally Cardiovascular Exam: Present: regular rate, normal rhythm GI/Abdominal exam: Present: soft. Absent: tenderness Course Vital Signs 10/14/23 20:01 Temperature 98.7 F Pulse Rate 92 Respiratory 16 Rate Blood Pressure 155/98 O2 Sat by Pulse 99 Oximetry Medical Decision Making - Medical Decision Making Was pt. sent in by a medical professional or institution (, PA, PHARMACEUTICAL SALES REPRESENTATIVE, urgent care, hospital, or [facility]...) When possible be specific @ -No Did you speak to anyone other than the patient for history (EMS, parent, family, police, friend...)? What history was obtained from this source @ -Son is present and helps confirm history including proximity to the hospital Did you review nursing and triage notes (agree or disagree)? Why? @ -I reviewed and agree with nursing and triage notes Were old charts reviewed (outside hosp., previous admission, EMS record, old EKG, old radiological studies, urgent care reports/EKG's, [facility] records)? Report findings @ -No old charts were reviewed Differential Diagnosis (chest pain, altered mental status, abdominal pain women, abdominal pain men, vaginal bleeding, weakness, fever, dyspnea, syncope, headache, dizziness, GI bleed, back pain, seizure, CVA, palpatations, mental health, musculoskeletal)? @ -Differential Abdominal Pain Men: Appendicitis, cholecystitis, diverticulosis, ischemic bowel, pancreatitis, hepatitis, UTI, gastroenteritis, AAA, incarcerated hernia, bowel obstruction, constipation, inflammatory bowel, hepatitis, peptic ulcer disease, splenic infarction, perforated viscus, testicular torsion, this is not meant to be an all-inclusive list EKG interpreted by me (3pts min.). @ -As above X-rays interpreted by me (1pt min.). @ -None done CT interpreted by me (1pt min.). @ -None done U/S interpreted by me (1pt. min.). @ -None done What testing was considered but not performed or refused? (CT, X-rays, U/S, labs)? Why? @ -Imaging considered however patient is symptom-free meds were considered but not given or refused? Why? @ -[None Didyou discuss the management of the patient with other professionals (professionals i.e. , PA, PHARMACEUTICAL SALES REPRESENTATIVE, lab, RT, psych nurse, social contact worker, pediatric physician assistant, teacher, medical scientific officer, case monitor)? Give summary @ -[No] assmoking cessation discussed for >3mins.? @ -[No] ascritical care preformed (if so, how long)? @ -[No] er there social determinants of health that impacted care today? How? (Homelessness, low income, unemployed, alcoholism, drug addiction, transportation, low edu. Level, literacy, decrease access to med. care, custodial, rehab)? @ -[No] asthere de-escalation of care discussed even if they declined (Discuss DNR or withdrawal of care, Hospice)? DNR status @ -[No] khoury co-morbidities impacted this encounter? (DM, HTN, Smoking, COPD, CAD, Cancer, CVA, ARF, Chemo, Hep., AIDS, mental health diagnosis, sleep apnea, morbid obesity)? @ -[None Waspatient admitted / discharged? Hospital course, mention meds given and route, prescriptions, significant lab abnormalities, going to OR and other pertinent info. @ -[patient is symptom-free following drinking water. Patient again drinks water during evaluation and does well with this. No dyspnea. Patient is updated and need for follow-up. Patient is comfortable discharge home. iagnosed new problem with uncertain prognosis? @ -[No] ru Therapy requiring intensive monitoring for toxicity (Heparin, Nitro, Insulin, Cardizem)? @ -[No] er any procedures done? @ -[No] ianosis/symptom? @ -[esophageal foreign body sensation e, or Chronic, or Acute on Chronic? @ -[defaAcutemplicated (without systemic symptoms) or Complicated (systemic symptoms)? @ -[defalt] Jorge effects of treatment? @ -[No] xaerbation, Progression, or Severe Exacerbation? @ -[No] oss a threat to life or bodily function? How? (Chest pain, [place], [place], pneumonia, PE, COPD, DKA, ARF, appy, cholecystitis, CVA, Diverticulitis, Homicidal, Erna cidal, threat to staff... and all critical care pts) @ -[No] Disposition Clinical Impression: Sensation of foreign body in esophagus Disposition: HOME SELF-CARE Condition: Stable Instructions (If sedation given, give patient instructions): Esophageal Foreign Body (ED) Additional Instructions: liquid diet for 24 hours. Continue proton pump inhibitor, omeprazole. Please do follow-up with gastroenterology in the next couple days for recheck and consider upper scope. Return for difficulty breathing, not tolerating oral intake, worsening symptoms or any other concerns. Is patient prescribed a controlled substance at d/c from ED?: No Referrals: Cordelia Joe MD [Primary Care Provider] - 1-2 days Time of Disposition: 20:23
== END 2023-10-14 21:09 | disposition home or self-care (01) ==
LOC: EC 19:59
DX: R09.A9 Foreign body sensation, other site (principal); I11.0 Hypertensive heart disease with heart failure; I50.9 Heart failure, unspecified; I48.91 Unspecified atrial fibrillation; J44.9 Chronic obstructive pulmonary disease, unspecified; F17.200 Nicotine dependence, unspecified, uncomplicated; Z79.51 Long term (current) use of inhaled steroids; Z79.899 Other long term (current) drug therapy; Z88.0 Allergy status to penicillin
CPT/HCPCS: 99282

== ENCOUNTER → 2025-02-03 | Outpatient (CLI) | payer MEDICARE, OTHER ==
--- NOTE | 2025-02-03 09:32 | US ---
EXAMINATION TYPE: US abdomen limited DATE OF EXAM: 02/03/2025 COMPARISON: Abdominal ultrasound 11/11/2022 CLINICAL INDICATION: Male, 70 years old with history of K70.30 ALCOHOLIC CIRRHOSIS OF LIVER WITHOUT A SCITE; known cirrhosis, no symptoms TECHNIQUE: Grayscale and color Doppler imaging of the right upper quadrant was performed. FINDINGS: EXAM MEASUREMENTS: Liver Length: 16.7 cm Gallbladder Wall: 0.2 cm CBD: 0.5 cm Right Kidney: 9.9 x 4.1 x 4.5 cm V BELT INSPECTOR NOTES:bowel gas limits scan Pancreas: wnl Liver: difficult to penetrate Gallbladder: dependant stones seen Evidence for sonographic Verdin's sign: no CBD: wnl Right Kidney: wnl Pancreas is within normal limits. Subtle surface nodularity of the liver with heterogenous appearance . The liver is difficult to penetrate. No focal lesion. Multiple layering small gallstones within the gallbladder. No wall thickening or surrounding fluid. Negative sonographic Verdin's sign. Common gokul e duct is within normal limits. Right kidney demonstrates no hydronephrosis, solid mass, or shadowing calculi. No visualized ascites within the right upper quadrant. IMPRESSION: 1. Heterogenous liver and difficult to penetrate again. No focal lesion. Subtle nodularity suggested . Findings likely related to reported cirrhosis. 2. Cholelithiasis without evidence for acute cholecystitis. [facility], , 02/03/2025 9:29 AM
== END | disposition home or self-care (01) ==
LOC: RADUSWWP 08:55
PROVIDERS: ATTEND Family Medicine
DX: K80.20 Calculus of gallbladder without cholecystitis without obstruction (principal); K70.30 Alcoholic cirrhosis of liver without ascites
CPT/HCPCS: 76705

== ENCOUNTER → 2025-02-10 | Outpatient (CLI) | payer MEDICARE, OTHER ==
--- NOTE | 2025-02-10 12:05 | CTL ---
EXAMINATION TYPE: CT Low Dose Lung DATE OF EXAM: 02/10/2025 11:34 AM COMPARISON: 08/12/2023. CLINICAL INDICATION: Male, 70 years old with history of Z12.2 ENCNTR SCREEN FOR MALIGNANT NEOPLASM OF RESP; Current smoker, 1 ppd x 20 years no concerns, history of tobacco use. TECHNIQUE: Multiple axial non-contrast scans were obtained from approximately the lung apices through the upper abdomen. Coronal and sagittal reformatted images were obtained. Low dose technique was uti lized. MIP were created on a separate workstation and submitted for review. CT DLP: 78 mGycm, Automated exposure control for dose reduction was used. CT Contrast: Contrast used: None Oral contrast used: None FINDINGS: Lack of intravenous contrast and low dose technique limits the evaluation of the vascular and soft ti ssue structures. LUNGS: No evidence of pulmonary fibrosis. No evidence of focal consolidation, pneumothorax or pleural effusion. Centrilobular emphysema changes. Nodules: RUL: None. RML: None. RLL: None. MILADIS: None. LLL: Stable left lower lobe superior segment 5 mm pulmonary nodule. AIRWAY: Patent and unremarkable. HEART: Size within normal limits. Mild coronary artery calcifications present. MEDIASTINUM: No gross evidence of adenopathy. This table prominent nonenlarged lymph nodes throughout the mediastinum. VASCULATURE: No aortic aneurysm. MUSCULOSKELETAL: Moderate disc degeneration changes are present throughout the thoracolumbar spine. SOFT TISSUES/LYMPH NODES bilateral gynecomastia changes. LOWER NECK: No significant findings. UPPER ABDOMEN: No significant findings. IMPRESSION: 1. No clinically significant pulmonary nodules. 2. Mild emphysema. CT LUNG RAD AND CT CHEST RECOMMENDATION: Lung-Rad 2 Benign Appearance or Behavior: Continue annual sc reening with LDCT in 12 months. S Modifier (other clinically significant findings): None Recommend smoking cessation (if current smoker), or continuation of smoking cessation (if prior smoke r). Annual screening for lung cancer with low-dose computed tomography is recommended in adults ages 55 to 77 years who have a 30 pack-year smoking history and currently smoke or have quit within the pa st 15 years. Screening should be discontinued once a person has not smoked for 15 years or develops a health problem that substantially limits life expectancy or the ability or willingness to have curat radha lung surgery. Lung rads 2021 [email or web address] [email or web address], , 02/10/2025 12:03 PM
== END | disposition home or self-care (01) ==
LOC: RADCTMAIN 11:05
PROVIDERS: ATTEND Family Medicine
DX: Z12.2 Encounter for screening for malignant neoplasm of respiratory organs (principal); F17.210 Nicotine dependence, cigarettes, uncomplicated; J43.2 Centrilobular emphysema
CPT/HCPCS: 71271